=== PATIENT | male | born 1945 | race Caucasian/White ===

== ENCOUNTER 2016-10-28 00:31 | Emergency (ER) | payer OTHER, MEDICARE ==
[2016-10-28] MEDS ORDERED: ASPIRIN 81 MG CHEW TAB ONE (00:42)
[2016-10-28] MEDS ORDERED: DUONEB INH ONE (00:59)
[2016-10-28] MEDS ORDERED: ALBUTEROL HFA INH ONE ×2 (04:35→04:36)
== END 2016-10-28 05:08 | disposition home or self-care (01) ==
LOC: ER 00:31
DX: J20.9 Acute bronchitis, unspecified (principal); I25.10 Atherosclerotic heart disease of native coronary artery without angina pectoris; Z95.1 Presence of aortocoronary bypass graft; Z79.82 Long term (current) use of aspirin; Z87.891 Personal history of nicotine dependence
CPT/HCPCS: 36415; 71010; 80053; 82550; 83735; 84484; 85025; 85610; 85730; 93005; 94640